=== PATIENT | female | born 1965 | race African-American/Black ===

== ENCOUNTER 2020-02-15 11:57 | Emergency (ER) | payer OTHER ==
[2020-02-15] MEDS ORDERED: ASPIRIN 81 MG TABLET, CHEWABLE PO ONE (12:40)
--- NOTE | 2020-02-15 12:49 | ER Document Report ---
ED Medical Screen (RME) - General Chief Complaint: Chest Pain Stated Complaint: CHEST PAIN Time Seen by Provider: 02/15/20 12:34 Mode of Arrival: Ambulatory Information source: Patient Notes: 54-year-old female presented to ED complaining of left chest pain since last night. She states last night she had that pain in the left upper chest through to the back today is no pain to the back. She denies any shortness of breath fever cough congestion. She denies any injuries. She does have a history of high blood pressure no other medical history. She states her mother had a heart aneurysm at age 54 in 1990. Patient is alert oriented respirations regular nonlabored speaking in full sentences. I have greeted and performed a rapid initial assessment of this patient. A comprehensive ED assessment and evaluation of the patient, analysis of test results and completion of medical decision making process will be conducted by an additional ED providers. - Related Data Allergies/Adverse Reactions: No Known Allergies Allergy (Unverified 02/15/20 12:39) Physical Exam - Vital signs Vitals: Temp Pulse Resp BP Pulse Ox 98.4 F 80 18 217/130 H 98 02/15/20 12:07 02/15/20 12:07 02/15/20 12:07 02/15/20 12:07 02/15/20 12:07 Course - Vital Signs Vital signs: Temp Pulse Resp BP Pulse Ox 98.4 F 80 18 217/130 H 98 02/15/20 12:07 02/15/20 12:07 02/15/20 12:07 02/15/20 12:07 02/15/20 12:07
--- NOTE | 2020-02-15 13:06 | EKG REPORT ---
SEVERITY:- NORMAL ECG - SINUS RHYTHM : Confirmed by: Moe Rushing MD 15-Feb-2020 13:05:56
[2020-02-15 13:24] LABS: ABSOLUTE EOSINOPHILS # (AUTO) 0.1 10^3/uL (0.0-0.6); ABSOLUTE LYMPHOCYTES (AUTO) 1.7 10^3/uL (0.5-4.7); ABSOLUTE MONOCYTES (AUTO) 0.4 10^3/uL (0.1-1.4); ABSOLUTE NEUT (AUTO) 3.8 10^3/uL (1.7-8.2); BASOPHILS % (AUTO) 0.7 % (0-2); EOSINOPHILS % (AUTO) 1.2 % (0-6); HEMATOCRIT 43.9 % (36.0-47.0); HEMOGLOBIN 14.3 g/dL (12.0-15.5); LYMPHOCYTES % (AUTO) 27.8 % (13-45); MEAN CORPUSCULAR HEMOGLOBIN 26.9 pg (27.0-33.4); MEAN CORPUSCULAR HGB CONC 32.5 g/dL (32.0-36.0); MEAN CORPUSCULAR VOLUME 83 fl (80-97); PLATELET COUNT 261 10^3/uL (150-450); RED BLOOD COUNT 5.31 10^6/uL (3.72-5.28); RED CELL DISTRIBUTION WIDTH 14.9 % (11.5-14.0); SEGMENTED NEUTROPHILS % (AUTO) 63.3 % (42-78); TOTAL CELLS COUNTED % (AUTO) 100 %
--- NOTE | 2020-02-15 13:31 | RADIOLOGY REPORT (SQ) ---
EXAM DESCRIPTION: CHEST 2 VIEWS IMAGES COMPLETED DATE/TIME: 02/15/2020 1:16 pm REASON FOR STUDY: left upper chest pain COMPARISON: None. EXAM PARAMETERS: NUMBER OF VIEWS: two views TECHNIQUE: Digital Frontal and Lateral radiographic views of the chest acquired. RADIATION DOSE: NA LIMITATIONS: none FINDINGS: LUNGS AND PLEURA: Low lung volumes with mild interstitial crowding. No focal consolidatio n. No pleural effusion or pneumothorax. MEDIASTINUM AND HILAR STRUCTURES: No masses or contour abnormalities. HEART AND VASCULAR STRUCTURES: Enlarged cardiac silhouette with central vascular congestion. No over t edema. BONES: No acute findings. HARDWARE: None in the chest. OTHER: No other significant finding. IMPRESSION: Enlarged cardiac silhouette with central vascular congestion. No overt edema. TECHNICAL DOCUMENTATION: JOB ID: [id number] 2010 [employer] All Rights Reserved Reading location - IP/workstation name: [email or web address]
[2020-02-15 13:45] LABS: ALBUMIN 4.3 g/dL (3.5-5.0); ALKALINE PHOSPHATASE 99 U/L (38-126); ANION GAP 6 (5-19); ASPARTATE AMINO TRANSFERASE 30 U/L (14-36); BLOOD UREA NITROGEN 14 mg/dL (7-20); CALCIUM 9.8 mg/dL (8.4-10.2); CARBON DIOXIDE 31 mmol/L (22-30); CHLORIDE 102 mmol/L (98-107); CREATINE KINASE 83 U/L (30-135); GLUCOSE 101 mg/dL (75-110); POTASSIUM 3.9 mmol/L (3.6-5.0); TOTAL PROTEIN 7.8 g/dL (6.3-8.2)
[2020-02-15 13:57] LABS: NT PRO BNP 172 pg/mL (<125)
[2020-02-15 13:58] LABS: TROPONIN I < 0.012 ng/mL
[2020-02-15 15:37] VITALS: BP 157/101
--- NOTE | 2020-02-15 15:42 | ER Document Report ---
ED General - General Chief Complaint: Chest Pain Stated Complaint: CHEST PAIN Time Seen by Provider: 02/15/20 12:34 Mode of Arrival: Ambulatory - HPI Notes: Patient is a 54-year-old female who presents to the emergency department for evaluation of chest pain. She states she noticed it during dinner. It is a left-sided chest pain. She points to an area at approximately the fourth rib, midclavicular line. It does not radiate. She states it "just hurts." It hurts for a few seconds and then stops. She states nothing seems to bring it on, nothing seems to make it better. She denies any associated nausea, diaphoresis, shortness of breath, near syncope. She states that she thought maybe she "just ate too fast and too much." She admits she was eating burgers and ribs at the time of the onset of pain. She states the pain started again today while she was laying down, so she presents to the ER for further evaluation. On further questioning, the patient states she does not know what her blood pressure runs. She last saw her provider in October, and she believes her blood pressure was "fin e." She has not had any changes in her medications, so is unsure of her losartan dose, but states she takes it daily. - Related Data Allergies/Adverse Reactions: No Known Allergies Allergy (Unverified 02/15/20 12:39) Home Medications: Losartan, multivitamin Past Medical History - General Information source: Patient - Social History Smoking Status: Former Smoker Family History: Reviewed & Not Pertinent, Other - Mother with aneurysm, father alive at 88 Patient has homicidal ideation: No - Past Medical History Cardiac Medical History: Reports: Hx Hypertension Denies: Hx Atrial Fibrillation, Hx Congestive Heart Failure, Hx Coronary Artery Disease Pulmonary Medical History: Denies: Hx Asthma, Hx COPD Neurological Medical History: Denies: Hx Cerebrovascular Accident, Hx Seizures Endocrine Medical History: Denies: Hx Diabetes Mellitus Type 2, Hx Hypo thyroidism Renal/ Medical History: Denies: Hx Kidney Stones, Hx Renal Insufficiency Malignancy Medical History: Reports: None GI Medical History: Denies: Hx Crohn's Disease, Hx Gastroesophageal Reflux Disease, Hx Ulcerative Colitis Review of Systems - Review of Systems Cardiovascular: See HPI -: Yes All other systems reviewed and negative Physical Exam - Vital signs Vitals: Temp Pulse Resp BP Pulse Ox 98.4 F 80 18 217/130 H 98 02/15/20 12:07 02/15/20 12:07 02/15/20 12:07 02/15/20 12:02/15/20 12:07 - Notes Notes: This is a very pleasant, obese 54-year-old female, who appears her stated age, no acute distress. Vital signs reviewed, please refer to chart. Head is normocephalic, atraumatic. Pupils equal round, reactive to light. Neck is supple without meningismus. Heart is regular rate and rhythm. Lungs are clear to auscultation bilaterally. Abdomen is soft, nontender, normoactive bowel sounds throughout. Extremities without cyanosis, clubbing. Posterior calves are nontender. Peripheral pulses are equal. Skin is warm and dry. Patient is awake, alert, neurological exam is nonfocal. Course - Re-evaluation Re-evalutation: 02/15/20 15:39 Patient presents to the emergency department for evaluation. On arrival she is significantly hypertensive. She is unsure as to what her blood pressure normally runs. Her chest pain does not seem typical of any pain of cardiac etiology. She has no risk factors for pulmonary embolus, including no recent surgeries, prolonged immobilization, family history, oral contraceptives, or personal history of cancer. She states her pain is only present for a few seconds of time, it is fleeting. We talked about her blood pressure as well. Without any sort of intervention, the patient's blood pressure has improved, although it is significantly elevated. She is not showing any other signs of endorgan damage. I explained to the patient she needs to follow-up closely with her primary care provider, she actually already has an appointment with her on . She is to continue her medications as prescribed, trying to visit her sister, to check her blood pressure outside of the office, and bring a record of that with her. She is to return to the ED with worsening or new concerning symptoms of any sort. 02/15/20 15:44 Please note radiology read chest x-ray is central vascular congestion. Clinically the patient does not fit with that. I suspect that this morbidly obese patient has some chronic central vascular congestion, but her proBNP is less than 200. She is not short of breath, and she has no other overt signs of failure. - Vital Signs Vital signs: Temp Pulse Resp BP Pulse Ox 98.4 F 80 15 183/110 H 97 02/15/20 12:07 02/15/20 12:07 02/15/20 14:51 02/15/20 14:51 02/15/20 14:51 - Laboratory Result Diagrams: 02/15/20 13:03 02/15/20 13:03 Laboratory results interpreted by me: 02/15/20 02/15/20 02/15/20 13:03 13:03 13:03 RBC 5.31 H MCH 26.9 L RDW 14.9 H Carbon Dioxide 31 H NT-Pro-B Natriuret Pep 172 H - Diagnostic Test Radiology reviewed: Reports reviewed Radiology results interpreted by me: 02/15/20 15:42 Chest X-Ray 02/15/20 12:40 IMPRESSION: Enlarged cardiac silhouette with central vascular congestion. No overt edema. - EKG Interpretation by Me Additional EKG results interpreted by me: 02/15/20 15:42 Sinus mechanism with a rate of 84 bpm. Normal axis and intervals. No acute ST changes concerning for ischemia or infarction. Discharge - Discharge Clinical Impression: Chest pain Qualifiers: Chest pain type: unspecified Qualified Code(s): R07.9 - Chest pain, unspecified Hypertension Qualifiers: Hypertension type: essential hypertension Qualified Code(s): I10 - Essential (primary) hypertension Condition: Stable Disposition: HOME, SELF-CARE Instructions: Chest Pain of Unclear Cause ([facility]), High Blood Pressure, Requiring Treatment ([facility]) Additional Instructions: No clear cause was identified today for your chest pain. No significant reason for your chest pain was seen on your x-ray, your blood work was unremarkable. Your blood pressure, however, was elevated. This needs to be addressed by your primary care provider. Please try to have your blood pressure checked outside of the doctor's office, discuss whether or not medication changes need to be made. Please address your risk factors as discussed. Return to the emergency department with worsening or new concerning symptoms of any sort.
== END 2020-02-15 15:51 | disposition home or self-care (01) ==
LOC: ER 11:57
DX: R07.9 Chest pain, unspecified (principal); I10 Essential (primary) hypertension; E66.9 Obesity, unspecified
CPT/HCPCS: 36415; 71046; 80053; 82550; 83735; 83880; 84484; 85025; 93005; 93010; 99285